=== PATIENT | female | born 1945 | race Caucasian/White ===

== ENCOUNTER 2017-10-18 06:23 | Day surgery (SDC) | payer MEDICARE, OTHER ==
[2017-10-18] VITALS (10 sets, daily range): BP systolic 101–127; BP diastolic 51–68
[~2017-10-18] VITALS: Ht 167.6 cm; Wt 69.0 kg
[~2017-10-18 06:23] MED LIST: ASPI-611 PO; CLIN150C2 PO; CRAN1CAP3 PO; FLUO20CA39 PO; GARL1000 PO; LACT1CAP73 PO; LEVO75TA PO; METO25TA6 PO; NITR0.4T51 SL; OXYB15TA PO; SIMV20TA5 PO
[2017-10-18] MEDS ORDERED: clindamycin 600mg/D5W 50ml 50 ML IV ONE ×2 (06:50→09:02)
[2017-10-18] MEDS ORDERED: normal saline 1000ml 1,000 ML IV PRN (06:50)
[2017-10-18 07:31] LABS: BASOPHILS % (AUTO) 0.4 % (0-1); EOSINOPHILS # (AUTO) 0.3 X10'3 (0-0.9); EOSINOPHILS % (AUTO) 3.4 % (0-6); HEMATOCRIT 42.7 % (35.0-45.0); HEMOGLOBIN 14.5 g/dl (12.0-16.0); LYMPHOCYTES # (AUTO) 2.7 X10'3 (1.1-4.8); LYMPHOCYTES % (AUTO) 35.1 % (21-51); MEAN CORPUSCULAR HEMOGLOBIN 32.6 PG (27.0-31.0); MEAN CORPUSCULAR HGB CONC 33.9 % (33.0-36.5); MEAN PLATELET VOLUME 8.1 FL (7.4-10.4); MONOCYTES # (AUTO) 0.8 X10'3 (0-0.9); MONOCYTES % (AUTO) 9.8 % (2-12); NEUTROPHILS % (AUTO) 51.3 % (42-75); PLATELET COUNT 235 X10'3 (140-440); RED BLOOD COUNT 4.45 X10'6 (4.20-5.60); RED CELL DISTRIBUTION WIDTH 14.4 % (11.5-14.5); WHITE BLOOD COUNT 7.8 X10'3 (4.5-11.0)
[2017-10-18] MEDS ORDERED: midazolam 2 mg/2 ml injection IV PRN (08:35)
[2017-10-18] MEDS ORDERED: fentaNYL/PF 50MCG/1 ML 2ML syringe IV PRN (08:35)
[2017-10-18] MEDS ORDERED: LIDOcaine 1%/PF (10mg/ml) 5ml vial SQ ONE (08:35)
[2017-10-18] MEDS ORDERED: diphenhydrAMINE 50 mg/ml inj IV ONE (08:35)
[2017-10-18] MEDS ORDERED: midazolam 2 mg/2 ml injection ONE ×2 (08:55→09:30)
[2017-10-18] MEDS ORDERED: fentaNYL/PF 50MCG/1 ML 2ML syringe ONE ×2 (08:55→09:30)
[2017-10-18] MEDS ORDERED: diphenhydrAMINE 50 mg/ml inj ONE (08:55)
[2017-10-18] MEDS ORDERED: LIDOcaine 1%/PF (10mg/ml) 5ml vial ONE (09:18)
[2017-10-18] MEDS ORDERED: iohexol 300 MG/1 ML 50ml polymer ONE (09:31)
[2017-10-18] MEDS ORDERED: normal saline 1000ml 1,000 ML IV SCH (10:16)
[2017-10-18] MEDS ORDERED: naproxen 500mg tablet PO ONE (11:20)
== END 2017-10-18 13:54 | disposition home or self-care (01) ==
LOC: SSTAY O 06:23
PROVIDERS: ATTEND Radiology Diagnostic Radiology
DX: S32.010A Wedge compression fracture of first lumbar vertebra, initial encounter for closed fracture (principal); M54.9 Dorsalgia, unspecified; Z98.890 Other specified postprocedural states; Z90.710 Acquired absence of both cervix and uterus; Z90.49 Acquired absence of other specified parts of digestive tract; Z87.891 Personal history of nicotine dependence; Z72.89 Other problems related to lifestyle; Z88.0 Allergy status to penicillin; Z88.8 Allergy status to other drugs, medicaments and biological substances; Z79.899 Other long term (current) drug therapy; V89.2XXA Person injured in unspecified motor-vehicle accident, traffic, initial encounter; Y93.9 Activity, unspecified; Y92.9 Unspecified place or not applicable
CPT/HCPCS: 22514; 36415; 85025; 99152; 99153; C1713; J1200; J2001; J2250; J3010; J3490; J7030; Q9967; A4620